=== PATIENT | male | born 1945 | race Caucasian/White ===

== ENCOUNTER → 2016-09-19 | Outpatient (CLI) | payer MEDICARE, OTHER | LOC: GMAJ 10:13 | PROVIDERS: ATTEND Family Medicine | DX: Z12.5 Encounter for screening for malignant neoplasm of prostate (principal) ==

== ENCOUNTER 2017-07-21 17:58 | Emergency (ER) | payer MEDICARE, OTHER ==
[2017-07-21 18:30] VITALS: BP 156/76; TEMP 98.8; O2SAT 95
--- NOTE | 2017-07-21 18:51 | ED.PDOC ---
History of Present Illness - General Chief Complaint: ENT Problem Stated Complaint: right ear pain x's 3 days Time Seen by Provider: 07/21/17 18:35 Source: patient Exam Limitations: no limitations - History of Present Illness Timing/Duration: abrupt - started after irrigating ear for congestion , other - four days ago EENT Location: ear (R) Prearrival Treatment: no prearrival treatment Improving Factors: nothing Worsening Factors: nothing Associated Symptoms: change in hearing, ear drainage - bloody drainage Allergies/Adverse Reactions: Allergies Procaine [From Novocain] Allergy (Verified 07/21/17 18:30) Statins Allergy (Verified 07/21/17 18:30) Home Medications: Ambulatory Orders 3 Blood Pressure Medications 07/21/17 Amoxicillin & Pot Clavulanate [Augmentin Tab] 875 mg PO BID #20 tab 07/21/17 Depression Medicat 07/21/17 Gerd Medication 07/21/17 Gout Medication 07/21/17 Muscle Relaxer 07/21/17 Sleeping Pill 07/21/17 Tramadol HCl 50 mg PO Q4HR PRN #15 tab 07/21/17 Tylenol 07/21/17 Review of Systems - Review of Systems Constitutional: Denies: chills, fever EENTM: States: ear pain, ear discharge. Denies: eye pain, nose congestion, throat pain Respiratory: Denies: cough, short of breath Cardiology: States: no symptoms reported Gastrointestinal/Abdominal: Denies: nausea, vomiting Genitourinary: States: no symptoms reported Musculoskeletal: States: no symptoms reported Skin: States: no symptoms reported Neurological: Denies: headache, weakness Past Medical History (General) - Patient Medical History Hx Seizures: No Hx Stroke: No Hx Dementia: No Hx Asthma: No Hx of COPD: No Hx Cardiac Disorders: No Hx Congestive Heart Failure: No Hx Pacemaker: No Hx Hypertension: Yes Hx Thyroid Disease: No Hx Diabetes: No Hx Gastroesophageal Reflux: Yes Hx Renal Disease: No Hx Cancer: No Hx of HIV: No Hx Hepatitis C: No Hx MRSA: No - Vaccination History Hx Tetanus, Diphtheria Vaccination: Yes Hx Influenza Vaccination: Yes Hx Pneumococcal Vaccination: Yes - Social History Hx Tobacco Use: No Hx Alcohol Use: No Hx Substance Use: No Hx Substance Use Treatment: No Hx Depression: Yes Family Medical History - Family History Mother Family History: Unknown Physical Exam - Physical Exam General Appearance: Alert, Obvious distress Eye Exam: bilateral normal Ear Exam: right ear: TM perforation, left ear: TM normal Nasal Exam: normal inspection Throat Exam: normal mouth inspection, pharynx normal Neck: non-tender, full range of motion, normal inspection Departure - Departure Clinical Impression: Tympanic membrane central perforation Qualifiers: Laterality: right Qualified Code(s): H72.01 - Central perforation of tympanic membrane, right ear Disposition: Discharge to Home or Self Care Departure Forms: ED Discharge - Pt. Copy, Patient Portal Self Enrollment Referrals: Yandel Constantino MD [Primary Care Provider] - 1-2 Weeks Prescriptions: Tramadol HCl 50 mg PO Q4HR PRN #15 tab PRN Reason: Pain Amoxicillin & Pot Clavulanate [Augmentin Tab] 875 mg PO BID #20 tab Home Medications: Ambulatory Orders 3 Blood Pressure Medications 07/21/17 Amoxicillin & Pot Clavulanate [Augmentin Tab] 875 mg PO BID #20 tab 07/21/17 Depression Medicat 07/21/17 Gerd Medication 07/21/17 Gout Medication 07/21/17 Muscle Relaxer 07/21/17 Sleeping Pill 07/21/17 Tramadol HCl 50 mg PO Q4HR PRN #15 tab 07/21/17 Tylenol 07/21/17
== END 2017-07-21 19:04 | disposition home or self-care (01) ==
LOC: ER 17:58
DX: H72.01 Central perforation of tympanic membrane, right ear (principal); I10 Essential (primary) hypertension

== ENCOUNTER → 2018-07-17 | Outpatient (CLI) | payer OTHER, MEDICARE | LOC: GMAJ 10:33 | PROVIDERS: ATTEND Family Medicine | DX: M10.00 Idiopathic gout, unspecified site (principal) ==

== ENCOUNTER → 2018-07-23 | Outpatient (CLI) | payer MEDICARE, OTHER | LOC: GMAJ 10:39 | PROVIDERS: ATTEND Family Medicine | DX: R97.20 Elevated prostate specific antigen [PSA] (principal) ==

== ENCOUNTER → 2019-06-07 | Outpatient (CLI) | payer MEDICARE, OTHER | LOC: GMAJ 10:41 | PROVIDERS: ATTEND Family Medicine | DX: R97.20 Elevated prostate specific antigen [PSA] (principal); I10 Essential (primary) hypertension; E78.2 Mixed hyperlipidemia ==

== ENCOUNTER → 2020-06-26 | Outpatient (CLI) | payer MEDICARE, OTHER | LOC: GMAJ 16:44 | PROVIDERS: ATTEND Family Medicine | DX: R10.11 Right upper quadrant pain (principal) ==

== ENCOUNTER → 2020-06-28 | Outpatient (CLI) | payer MEDICARE, OTHER ==
--- NOTE | 2020-06-29 13:45 | US ---
EXAM DESCRIPTION: Abdomen,Complete: Ultrasound. CLINICAL HISTORY: 75 years Male RIGHT UPPER QUADRANT PAIN COMPARISON: None Available. TECHNIQUE: Transabdominal scanning: grayscale and Doppler modes.. Technically difficult study due to patient body habitus. FINDINGS: Gallbladder: normal size, shape, echogenicity; no intraluminal stones or sludge. No fluid around the gallbladder. No wall thickening. 2.6 mm. Non-tender with transducer pressure. Common bile duct: caliber 4.2 mm within normal limits. Liver: Heterogeneously increased echogenicity; contour liver capsule smooth where seen. No fluid around the liver. Intrahepatic biliary ducts normal caliber. Doppler hepatopedal flow and normal caliber portal vein 7.4 mm. Long axis right lobe 17.4 cm Pancreas: Limited visualization. Normal size and echogenicity. Duct not seen. Complete abdominal aorta: Normal caliber from the proximal segment to the distal bifurcation.. IVC: visualized and normal caliber. Right kidney: long axis measures 10.9 cm; volume 188.3 mL. Cortical echogenicity is normal. 11 mm cortical thickness.. No echogenic stones; no hydronephrosis. Left kidney: Limited visualization. Long axis measures 10.3 cm; volume 187.3 mL. Cortical echogenicity increased more than the liver.. Cortical thickness 10 mm. No echogenic stones; no hydronephrosis. Spleen: Normal. No focal lesions.. 13.1 cm long axis. Other: None. IMPRESSION: 1. Limited study as described. Normal gallbladder and normal caliber of the common bile duct. Nontender with transducer pressure. Spleen size upper normal limits. No ascites. 2. Steatosis of the liver with mild enlargement. Vascularity and ducts are physiologic. Smooth capsule. Limited visualization of the pancreas. Duct not seen. 3. Bilateral kidneys with cortical thinning and increased cortical echogenicity on the left more than the liver. Scattered indicate medical renal disease. Symmetric size bilaterally. No echogenic stones or hydronephrosis. Normal caliber of the abdominal aorta and IVC. Electronically signed by: Júnior Valentino MD 06/29/2020 1:44 PM [facility]
== END ==
LOC: US 08:23
PROVIDERS: ATTEND Family Medicine
DX: K76.0 Fatty (change of) liver, not elsewhere classified (principal); N28.9 Disorder of kidney and ureter, unspecified

== ENCOUNTER → 2020-07-06 | Outpatient (CLI) | payer MEDICARE, OTHER ==
--- NOTE | 2020-07-07 11:13 | CT ---
EXAM DESCRIPTION: Abdomen w/o Contrast CLINICAL HISTORY: 75 years Male, right upper quadrant pain COMPARISON: None. FINDINGS: 2.[address] scanning through the abdomen was performed without contrast. The clinical history is right upper quadrant pain. Normal CT appearance of the gallbladder with no calcified stones or over distention. Normal CT appearance of the pancreas with no peripancreatic inflammation or pancreatic mass. Normal kidneys with no stones or hydronephrosis. Mild left renal scarring. Normal adrenal glands. Stomach and upper abdominal bowel loops appear normal. No free air or free fluid. Liver is normal in size. No focal hepatic or splenic lesion. No free air or free fluid. The appendix appears normal. Extensive diverticulosis of the proximal sigmoid colon with no focal inflammation to suggest diverticulitis. In the lower chest, the heart is prominent in size with prominent coronary calcification. Lower lungs appear clear of infiltrates. Coronal and sagittal reformatted images confirm the findings. Degenerative disc disease with vacuum phenomenon in the lower thoracic and lower lumbar spine. Calcified aorta without stenosis or aneurysm. No ventral hernia. Mild linear increased density in the right abdominal wall in the deep subcutaneous fat. Edema from infectious process such as soft tissue cellulitis might be considered. Edema from traumatic contusion could cause this appearance. Asymmetric positional edema related to heart failure, renal failure or hypoalbuminemia might be considered. No drainable fluid collection. No gas in the soft tissues. IMPRESSION: No acute intra-abdominal process. Mild nonspecific asymmetric edema of the right body wall. See above. This exam was performed according to our departmental dose-optimization program, which includes automated exposure control, adjustment of the mA and/or kV according to patient size and/or use of iterative reconstruction technique. Electronically signed by: Emiliano Grace MD 07/07/2020 11:11 AM [facility]
== END ==
LOC: CT 14:32
PROVIDERS: ATTEND Family Medicine
DX: R10.11 Right upper quadrant pain (principal); R60.0 Localized edema